=== PATIENT | male | born 1945 | race Caucasian/White ===

== ENCOUNTER 2019-10-25 10:07 | Outpatient (CLI) | payer MEDICARE, SELFPAY ==
--- NOTE | ~2019-10-25 | XR_ITS ---
XR abdomen/kub 1V 10/25/2019 10:23 Indication: Renal stones Procedure: KUB Comparison: Comparison to multiple prior studies sequentially, with oldest reviewed study dated 04/15. Findings: There are bilateral renal stones. There are pelvic phleboliths. There are gallstones. There are pancreatic calcifications, consistent with chronic pancreatitis. Bowel gas pattern is nonobstruc tive. Impression: 1: Bilateral nephrolithiasis. 2: Cholelithiasis. 3: Chronic pancreatitis. Reviewed, dictated and finalized at location B. ER AXMINSTER Impression: 1: Bilateral nephrolithiasis. 2: Cholelithiasis. 3: Chronic pancreatitis.
== END 2019-10-25 10:08 | disposition home or self-care (01) ==
PROVIDERS: PCP Family Medicine Adolescent Medicine; Visit Provider Urology
DX: N20.0 Calculus of kidney (principal); K80.20 Calculus of gallbladder without cholecystitis without obstruction; K85.90 Acute pancreatitis without necrosis or infection, unspecified
CPT/HCPCS: 74018

== ENCOUNTER 2021-03-07 10:43 | Outpatient (CLI) | payer MEDICARE, SELFPAY ==
--- NOTE | 2021-03-07 11:07 | ECG_ITS ---
Measurements Intervals [place] Rate: 52 P: 41 [place]: 171 QRS: -8 QRSD: 87 T: 42 QT: 439 QTc: 409 Interpretive Statements SINUS BRADYCARDIA EARLY PRECORDIAL R/S TRANSITION BORDERLINE ECG Electronically Signed On 03-07-2021 11:20:17 CDT by Balbir Zaragoza D.O.
== END 2021-03-07 10:44 | disposition home or self-care (01) ==
LOC: ANHCARD 10:46
PROVIDERS: PCP Family Medicine Adolescent Medicine; Visit Provider Physician Assistant
DX: Z01.818 Encounter for other preprocedural examination (principal); I25.2 Old myocardial infarction; R94.31 Abnormal electrocardiogram [ECG] [EKG]
CPT/HCPCS: 93005

== ENCOUNTER 2025-01-18 13:03 | Outpatient (CLI) | payer MEDICARE, SELFPAY ==
--- OUTSIDE RECORDS SUMMARY | 2025-01-18 13:08 | XMS_ITS | Encounter Summary ---
Author Organization [facility] Address [address] [place] [address] Care Team Providers Care Director Of Education Name Role Phone Unavailable Primary Care Provider Unavailabl e Encounter Details Date Type Department Care Team (Late st Contact Info) Description 02/22/2023 Documentation [facility] [address] [place] [phone] Edgar Balderrama MD [address] [place] [address] Social History Tobacco Use Types Packs/Day Years Used Date Smoking Tobacco: Never Assessed Sex and Gender Information Value Date Recorded Sex Assigned at Not on file Legal Sex Male 10:36 AM CDT Gender Identity Not on file Sexual Orientation Not on file documented as of this encounter Plan of Treatment Not on file documented as of this encounter Procedures Procedure Name Priority Date/Time Associated Diagnosis Comments FL FLUOROSCOPY UP TO 1 HOUR 02/24/2023 7:02 AM CDT documented in this encounter Results * Fluoroscopy less than 1 hour (02/24/2023 7:02 AM CDT) Anatomical Region Laterality Modality Body Radio Fluoroscop y Narrative 02/24/2023 7:02 AM CDT [facility] [address] [place]. [address] __ RADIOLOGY DICE PERSON REPORT Name: SLADE Malagon Acct Num: [id number] Age: 77 MR Num: [id number] : 1945 Sex: M Phone Num: [phone] Film Num: [id number] Stay Type: O/P Room: [facility] Admit Phys: CONCHIS R Ordering Phys: CONCHIS Zapien Phy: Transcript Date: 02/24/23 Order Num: [id number] Transcript Init: LP Transcript Time: 07:02 Unsigned Transcriptions are Preliminary reports and do not represent medical or legal documents. C-ARM FLUOROSCOPY 1-HOUR [id number] COMPLETE:02/22/23 18:07 JNB [id number] (C-ARM REASON: rt stent place NO READING PER DR BALDERRAMA Copy for: CONCHIS MANDUJANO via fax DISCHARGED Procedure Note [facility], Radiologist - 04/27/2023 [facility] [address] [place]. [address] __ RADIOLOGY DICE PERSON REPORT Name: SLADE Malagon Acct Num: [id number] Age: 77 MR Num: [id number] : 1945 Sex: M Phone Num: [phone] Film Num: [id number] Stay Type: O/P Room: [facility] Admit Phys: CONCHIS R Ordering Phys: CONCHISR Phy: Transcript Date: 02/24/23 Order Num: [id number] Transcript Init: LP Transcript Time: 07:02 Unsigned Transcriptions are Preliminary reports and do not represent medical or legal documents. C-ARM FLUOROSCOPY 1-HOUR [id number] COMPLETE:02/22/23 18:07 [id number] (C-ARM REASON: rt stent place NO READING PER DR BALDERRAMA Copy for: CONCHIS MANDUJANO via fax DISCHARGED Edgar Balderrama MD IM FLUOROSCOPY PROCEDURES Final Result documented in this encounter Visit Diagnoses Not on filedocumented in this encounter
--- OUTSIDE RECORDS SUMMARY | 2025-01-18 13:08 | XMS_ITS | Clinical Summary ---
Author Organization [facility] Address [facility] [place] [address] Care Team Providers Care Dealmaker Name Role Phone Unavailable Primary Care Provider Unavailabl e Medications aspirin 81 mg EC tablet 81 mg oral daily 3 Active atorvastatin (LIPITOR) 40 mg tablet 40 mg oral daily 3 Active cholecalciferol , vitamin D3, (VITAMIN D3) 125 mcg (5,000 unit) capsule 125 mcg oral daily 3 Active donepeziL (ARICEPT) 10 mg tablet 10 mg oral daily 3 Active fenofibrate (TRIGLIDE) 160 mg tablet 160 mg oral daily 3 Active hydroCHLOROthia zide (HYDRODIURIL) 25 mg tablet 25 mg oral daily 3 Active insulin aspart U-100 (NovoLOG FlexPen U-100 Insulin) 100 unit/mL (3 mL) insulin pen 12 units subcutaneous daily 3 Active insulin detemir U-100 (Levemir FlexPen) 100 unit/mL (3 mL) insulin pen 3 units subcutaneous bedtime 3 Active losartan (COZAAR) 25 mg tablet 25 mg oral daily 3 Active metFORMIN (GLUCOPHAGE) 1,000 mg tablet 1000 mg oral twice daily 3 Active niacin (Niaspan Extended-Releas e) 1,000 mg CR tablet 1000 mg oral daily 3 Active nitroGLYcerin (NITROSTAT) 0.4 mg SL tablet 0.4 mg sublingual 3 Active OLANZapine (ZyPREXA) 5 mg tablet 5 mg oral daily 3 Active sertraline (ZOLOFT) 25 mg tablet 25 mg oral daily 3 Active terbinafine (LamiSIL) 250 mg tablet 250 mg oral daily 3 Active Immunizations Immunization Administration Dates Next Due Moderna Covid-19, Mrna, Lnp- s, Pf, 100mcg/0.5ml Dose 03/12/2022,06/20/2021,10/26/2020,2020 Social History Tobacco Use Types Packs/Day Years Used Date Smoking Tobacco: Never Assessed Sex and Gender Information Value Date Recorded Sex Assigned at Not on file Legal Sex Male 10:36 AM CDT Gender Identity Not on file Sexual Orientation Not on file Plan of Treatment Health Maintenance Due Date Last Done Comments DTaP,Tdap,and Td Vaccines (1 - Tdap) 1965 AMB Pneumococcal 50+ yrs (1 of 1 - PCV) 1994 Zoster Series Vaccines (1 of 2) 1994 Fall Risk Assessment 2009 Medicare Annual Wellness Visit 2009 RSV Vaccines and 60 Years or Older (1 - 1-dose 75+ series) 2019 COVID-19 Vaccine ( season) 2024 03/12/2022, 06/20/2021, 10/26/2020, Additional history exists Advance Care Planning 08/23/2024 Influenza Vaccine (Season Ended) 2025 HIB Vaccines Aged Out No longer eligi ble based on patient's age to complete this topic HPV Vaccines Aged Out No longer eligi ble based on patient's age to complete this topic Hepatitis A Vaccines Aged Out No long er eligible based on patient's age to complete this topic Hepatitis B Vaccines Aged Out No long er eligible based on patient's age to complete this topic IPV Vaccines Aged Out No longer eligi ble based on patient's age to complete this topic Meningococcal ACWY Vaccine Aged Out N o longer eligible based on patient's age to complete this topic Meningococcal B Vaccine Aged Out No l onger eligible based on patient's age to complete this topic RSV Vaccines <20 Months Aged Out No l onger eligible based on patient's age to complete this topic
--- OUTSIDE RECORDS SUMMARY | 2025-01-18 13:08 | XMS_ITS ---
Author Organization Unknown Address [address] [place], [place] [id number] Phone Care Team Providers Care Workers' Compensation Mediator Name Role Phone MOLLY CONCETTA RIVERA Attending Unavailable Immunization Immunization Date Status Additional Notes Code Code System COVID-19, mRNA, LNP-S, PF, 5 0 mcg/0.5 mL 06/21/2023 Completed 312 CVX Pneumococcal conjugate PCV20 , polysaccharide [id number] conjugate, adjuvant, PF 02/26/2023 Completed 216 CVX COVID-19, mRNA, LNP-S, PF, 1 00 mcg/0.5mL dose or 50 mcg/0.25mL dose 03/12/2022 Completed 207 CVX COVID-19, mRNA, LNP-S, PF, 1 00 mcg/0.5mL dose or 50 mcg/0.25mL dose 06/20/2021 Completed 207 CVX COVID-19, mRNA, LNP-S, PF, 1 00 mcg/0.5mL dose or 50 mcg/0.25mL dose 10/26/2020 Completed 207 CVX COVID-19, mRNA, LNP-S, PF, 1 00 mcg/0.5mL dose or 50 mcg/0.25mL dose 09/28/2020 Completed 207 CVX Influenza, high-dose, quadrivalent, PF 05/31/2023 Completed 197 CVX Social History Type Status Start Date End Date Code Code Syst em Sex Male Hospital Discharge Instructions Should you have any questions prior to discharge, please contact a member of your healthcare team. If you have left the hospital and have any questions, please contact your primary care physician. Reason For Referral No Data Found Plan of Treatment No Data Found Encounters Encounter Diagnosis Start Date Code Code Sys tem Muscle weakness 07/07/2023 11939695 SNOMED-CT Personal Care Team Section Performer Name Performer Role Active Date Inactive Da te Progress Notes [facility] PT Initial Evaluation Scanned image
--- OUTSIDE RECORDS SUMMARY | 2025-01-18 13:08 | XMS_ITS | Clinical Summary ---
Author Organization [facility] Address [address] [place] [address] Phone Care Team Providers Care Professor Of Biology Name Role Phone Farhat Blas MD Primary Care Provider [phone] Allergies Active Allergy Reactions Criticality Noted Date Comments Codeine Nausea Only Medium Penicillins Rash Medium Medications Multiple Vitamin (MULTIVITAMIN) capsule 05/14/2012 Active insulin glulisine (APIDRA) 100 UNIT/ML injection 08/07/2015 Active aspirin 325 MG tablet 05/14/2012 Active losartan (COZAAR) 25 MG tablet 1 daily 3 05/14/2012 Active glipiZIDE (GLUCOTROL) 5 MG tablet 1 bid 05/14/2012 Active metFORMIN (GLUCOPHAGE) 1000 MG tablet 1 bid 05/14/2012 Acti ve cholecalciferol (VITAMIN D-3) 2000 units capsule 1 daily 05/18/2012 Active niacin (NIASPAN) 1000 MG CR tablet 05/14/2012 Active fenofibrate (TRIGLIDE) 160 MG tablet 05/15/2019 Active insulin aspart (NovoLOG FLEXPEN) 100 UNIT/ML injection Active EASY TOUCH PEN NEEDLES 31G X [facility] MM [facility] 11/22/2019 Active Lancets (ONETOUCH DELICA PLUS [id number]) [facility] 11/22/2019 Act sabrina donepezil (ARICEPT) 10 MG tablet 11/22/2019 Active OneTouch Ultra test strip 05/16/2020 Active atorvastatin (LIPITOR) 40 MG tablet 07/23/2021 Active nitroglycerin (NITROSTAT) 0.[address] 0.4 mg under the tongue every 5 minutes as needed Active omega-3 (FISH OIL) 1200 MG capsule Take 1,200 mg by mouth 2 times daily Active OLANZapine (ZyPREXA) 2.5 MG tablet 01/13/2022 Active hydroCHLOROthia zide (HYDRODIURIL) 25 MG tablet TAKE 1 TABLET (25 MG TOTAL) BY MOUTH 1 (ONE) TIME EACH DAY IN THE MORNING FOR FLUID, SWELLING, OR BLOOD PRESSURE. 90 tablet 3 05/04/2022 Active Farxiga 10 MG tablet 06/25/2022 Active Baqsimi Two Pack 3 MG/DOSE powder 05/26/2022 Active Tresiba FlexTouch 100 UNIT/ML injection 06/25/2022 Active sertraline (ZOLOFT) 50 MG tablet 07/27/2022 Active Active Problems Problem Noted Date Diagnosed Date Hyperlipidemia 08/03/2018 Proteinuria 02/03/2017 Vitamin D deficiency 02/03/2017 Type 2 diabetes mellitus without complication Stage 3a chronic kidney disease 03/15/2012 Hypertensive chronic kidney disease with stage 1 through stage 4 chronic kidney disease, or unspecified chronic kidney disease 03/15/2012 Calculus of kidney 03/15/2012 Immunizations Immunization Administration Dates Next Due Influenza TIV (IM) 05/07/2022,05/23/2021, 020 Pneumococcal Conjugate 04/23/2019 Family History Medical History Relation Comments Kidney disease Neg Hx Kidney stone Neg Hx Social History Tobacco Use Types Packs/Day Years Used Date Smoking Tobacco: Never Smokeless Tobacco: Never Alcohol Use Standard Drinks/Week Comments No 0 (1 standard drink = 0.6 oz pur e alcohol) AUDIT-C Answer Date Recorded Frequency of Alcohol Consumption Never 02/08/2019 Average Number of Drinks Not on file 019 Frequency of Binge Drinking Not on file 01/21 Sex and Gender Information Value Date Recorded Sex Assigned at Not on file Legal Sex Male 8:15 AM MST Gender Identity Not on file Sexual Orientation Not on file Last Filed Vital Signs Vital Sign Reading Time Taken Comments Blood Pressure 112/60 07/29/2022 10:05 AM REFRIGERATION SPECIALIST Pulse 72 07/29/2022 10:05 AM REFRIGERATION SPECIALIST Temperature 34.7 C (94.4 F) 07/29/2022 10:05 AM REFRIGERATION SPECIALIST Respiratory Rate 18 11/02/2012 12:01 AM CDT Oxygen Saturation - - Inhaled Oxygen Concentration - - Weight 86.6 kg (191 lb) 07/29/2022 10:05 AM REFRIGERATION SPECIALIST Height 172.7 cm (5' 8) 07/29/2022 10:05 AM REFRIGERATION SPECIALIST Body Mass Index 29.04 07/29/2022 10:05 AM REFRIGERATION SPECIALIST Plan of Treatment Health Maintenance Due Date Last Done Comments Pneumococcal PPSV23/PCV13 65 + Years / Low and Medium Risk (1 of 4 - PCV) 1994 Influenza Vaccine (Season Ended) 2025 05/07/2022, 05/23/2021, 04/23/2020 Insurance [employer] Care Teams Professor Of Biology Relationship Specialty Start Date End Date Farhat Blas MD [address] [address] PCP - General Family Medicine 02/08/19
--- OUTSIDE RECORDS SUMMARY | 2025-01-18 13:08 | XMS_ITS ---
Author Organization Unknown Address [address] [place], [place] [id number] Phone Care Team Providers Care Theatrical Performer Name Role Phone Unavailable [employer] Unavailable CONCHIS MANDUJANO Attending Unavail able Immunization Immunization Date Status Additional Notes Code Code System COVID-19, mRNA, LNP-S, PF, 1 00 mcg/0.5mL dose or 50 mcg/0.25mL dose 09/28/2020 Completed 207 CVX COVID-19, mRNA, LNP-S, PF, 1 00 mcg/0.5mL dose or 50 mcg/0.25mL dose 10/26/2020 Completed 207 CVX COVID-19, mRNA, LNP-S, PF, 1 00 mcg/0.5mL dose or 50 mcg/0.25mL dose 06/20/2021 Completed 207 CVX COVID-19, mRNA, LNP-S, PF, 1 00 mcg/0.5mL dose or 50 mcg/0.25mL dose 03/12/2022 Completed 207 CVX Results C-ARM FLUOROSCOPY 1-HOUR - C ompleted: 02/22/2023 18:07 LOINC: NO READING PER DR BALDERRAMA Copy for: CONCHIS MANDUJANO via fax DISCHARGED Social History Type Status Start Date End Date Code Code Syst em Sex Male Vital Signs Vital Sign Value Unit [place] Value [place] Unit Date/Time Recent/Initial? Code Code System Systolic Blood Pressure 123 mm[Hg] 02/22/2023 19:50 Most Recent 8480-6 LOINC Diastolic Blood Pressure 58 mm[Hg] 02/22/2023 19:50 Most Recent 8462-4 LOINC Systolic Blood Pressure 129 mm[Hg] 02/22/2023 18:50 Initial 8480-6 LOINC Diastolic Blood Pressure 68 mm[Hg] 02/22/2023 18:50 Initial 8462-4 LOINC O2 Saturation 98 % 2022 19:50 Most Recent 69926- 5 [facility] O2 Saturation 94 % 2022 18:50 Initial 02766- 5 INC Pulse 64.0 /min 02/22/2023 19:50 Most Recent 8867-4 INC Pulse 68.0 /min 02/22/2023 18:50 Initial 8867-4 LOINC Respiration 18 /min 02/23/20 19:50 Most Recent 9279-1 LOINC Respiration 17 /min 02/23/20 18:50 Initial 9279-1 [facility] Temperature 37.3 Margo 99.2 F 02/23/20 18:50 Initial 8310-5 [facility] Medications Medication Start Date End Date Route Frequency Dose Code Code System Medication Instructions Home Meds Aspirin 81MG Oral Tablet, Enteric Coated 02/22/2023 Unknown ORAL DAILY 81 MILLIGRAMS 969090 RxNorm TAKE 81 MILLIGRAMS ORAL DAILY Atorvastati n Calcium 40MG Oral Tablet 02/22/2023 Unknown ORAL DAILY 40 MILLIGRAMS 597602 RxNorm TAKE 40 MILLIGRAMS ORAL DAILY Donepezil HCl 10MG Oral Tablet 02/22/2023 Unknown ORAL DAILY 10 MILLIGRAMS 156146 RxNorm TAKE 10 MILLIGRAMS ORAL DAILY Fenofibrate 160MG Oral Tablet 02/22/2023 Unknown ORAL DAILY 160 MILLIGRAMS 300125 RxNorm TAKE 160 MILLIGRAMS ORAL DAILY Fish Oil 1200 MG Oral Capsule, Liquid Filled 02/22/2023 Unknown ORAL TWICE DAILY 1200 MG 787186 RxNorm TAKE 1200 MG ORAL TWICE DAILY Levemir FlexPen 100U/1ML Subcutaneou s Solution 02/22/2023 Unknown SUBCUTAN EOUS BEDTIME 30 UNIT 057931 RxNorm INJECT 30 UNIT SUBCUTANEOUS BEDTIME Losartan Potassium 25MG Oral Tablet 02/22/2023 Unknown ORAL DAILY 25 MILLIGRAMS 555944 RxNorm TAKE 25 MILLIGRAMS ORAL DAILY Multivitami n Oral Tablet 02/22/2023 Unknown ORAL DAILY 1 unit(s) RxNorm TAKE 1 EACH ORAL DAILY Niaspan 1000MG Oral Tablet, Extended Release 02/22/2023 Unknown ORAL DAILY 1000 MILLIGRAMS [id number] RxNorm TAKE 1000 MILLIGRAMS ORAL DAILY Nitroglycer in 0.4MG Sublingual Tablet 02/22/2023 Unknown SUBLINGU AL 0.4 MILLIGRAMS 481586 RxNorm 0.4 MILLIGRAMS SUBLINGUAL NovoLOG FlexPen 100U/1ML Subcutaneou s Solution 02/22/2023 Unknown SUBCUTAN EOUS DAILY 12 UNIT 6874327 RxNorm INJECT 12 UNIT SUBCUTANEOUS DAILY OLANZapine 5MG Oral Tablet 02/22/2023 Unknown ORAL DAILY 5 MILLIGRAMS 560166 RxNorm TAKE 5 MILLIGRAMS ORAL DAILY Sertraline 25MG Oral Tablet 02/22/2023 Unknown ORAL DAILY 25 MILLIGRAMS 477569 RxNorm TAKE 25 MILLIGRAMS ORAL DAILY Terbinafine 250MG Oral Tablet 02/22/2023 Unknown ORAL DAILY 250 MILLIGRAMS 333916 RxNorm TAKE 250 MILLIGRAMS ORAL DAILY Vitamin D3 125 MCG Oral Capsule 02/22/2023 Unknown ORAL DAILY 125 MCG [id number] RxNorm TAKE 125 MCG ORAL DAILY hydroCHLORO thiazide 25MG Oral Tablet 02/22/2023 Unknown ORAL DAILY 25 MILLIGRAMS 270694 RxNorm TAKE 25 MILLIGRAMS ORAL DAILY metFORMIN HCl 1000MG Oral Tablet 02/22/2023 Unknown ORAL TWICE DAILY 1000 MILLIGRAMS 614126 RxNorm TAKE 1000 MILLIGRAMS ORAL TWICE DAILY Hospital Discharge Instructions Should you have any questions prior to discharge, please contact a member of your healthcare team. If you have left the hospital and have any questions, please contact your primary care physician. Reason For Referral No Data Found Procedures Procedure Name Date Status Code Code Syste m Extirpation of Matter from R ight Ureter, Via Natural or Artificial Opening 02/22/2023 completed [id number] IC [id number] Dilation of Right Ureter wit h Intraluminal Device, Via Natural or Artifici 02/22/2023 completed [id number] Allergies and Adverse Reactions Allergy Substance Reaction Severity Start Date Concern Status Co de Code System PCN (penicillin) Active 9245053 HublishedOMED- CT CODEINE Active 2670 RxNorm Plan of Treatment No Data Found Encounters Encounter Diagnosis Start Date Code Code Sys tem Hydronephrosis with renal an d ureteral calculous obstruction 02/22/2023 [employer] Pl[employer]-CT Personal Care Team Section Performer Name Performer Role Active Date Inactive Da te Imaging Narrative Notes [facility] 02/24/2023 07:05 [facility] [address] [place]. [address] __ RADIOLOGY GAMEROOM TECHNICIAN REPORT Name: SLADE Malagon Acct Num: [id number] Age: 77 MR Num: [id number] : 1945 Sex: M Phone Num: [phone] Film Num: [id number] Stay Type: O/P Room: [facility] Admit Phys: CONCHIS Antunez Ordering Phys: CONCHIS Zapien Phy: Transcript Date: 02/24/23 Order Num: [id number] Transcript Init: LP Transcript Time: 07:02 Unsigned Transcriptions are Preliminary reports and do not represent medical or legal documents. C-ARM FLUOROSCOPY 1-HOUR 37000 COMPLETE:02/22/23 18:07 JNB [id number] (C-ARM REASON: rt stent place NO READING PER DR BALDERRAMA Copy for: CONCHIS MANDUJANO via fax DISCHARGED
--- OUTSIDE RECORDS SUMMARY | 2025-01-18 13:08 | XMS_ITS | Clinical Summary ---
Author Organization [facility] Address [address] [place] [address] Care Team Providers Care Teasel Gig Operator Name Role Phone Farhat Conde MD Primary Care Provider + Source Comments [facility],non-owned Affiliates and Associated Physician Practices is amultiple site organization consisting of ambulatory clinics and hospital sitesin [place], [place], [place] and [place]. This disclosure is being madepursuant to the Care Everywhere program and may not contain all information available regarding this patient. Last updated 18.[facility] Allergies Active Allergy Reactions Criticality Noted Date Comments Cresencio Inhibitors Cough 06/21/2024 Codeine Unknown 05/21/2021 Penicillins Unknown 05/21/2021 Medications * This document contains information received from the source organization and may not represent a complete record from that organization. * Be aware that medications may not be up to date on this document. Alwaysverify current medications with the patient. terbinafine (LAMISIL) 250 MG tabletIndications:T inea Pedis Take 1 tablet by mouth once daily 03/31/20 21 Active LEVEMIR FLEXTOUCH penIndications:Type 2 Diabetes Mellitus Inject 30 (thirty) Units subcutaneously at bedtime Reasons: Type 2 Diabetes 02/19/20 21 Active NOVOLOG FLEXPEN penIndications:Type 2 Diabetes Mellitus Inject 12 (twelve) Units subcutaneously daily with lunch Reasons: Type 2 Diabetes 02/19/20 21 Active insulin aspart (NOVOLOG) penIndications:Type 2 Diabetes Mellitus Inject 16 (sixteen) Units subcutaneously daily with dinner Reasons: Type 2 Diabetes Active atorvastatin (LIPITOR) 40 MG tabletIndications:H yperlipidemia Take 1 (one) tablet by mouth once daily Reasons: High Amount of Fats in the Blood 03/13/20 Active metFORMIN (GLUCOPHAGE) 1000 MG tabletIndications:T ype 2 Diabetes Mellitus Take 1 (one) tablet by mouth 2 times daily with morning and evening meal Reasons: Type 2 Diabetes Active niacin CR (NIASPAN) 1000 MG tabletIndications:H yperlipidemia Take 1,000 mg by mouth every evening Active fenofibrate (LOFIBRA) 160 MG tabletIndications:H ypertriglyceridemia Take 1 (one) tablet by mouth every evening Take with largest meal of the day. Reasons: High Amount of Triglycerides in the Blood Active hydroCHLOROthiazide (HYDRODIURIL) 25 MG tabletIndications:H ypertension Take 1 (one) tablet by mouth once daily Reasons: High Blood Pressure Disorder Active losartan (COZAAR) 25 MG tabletIndications:H ypertension Take 1 (one) tablet by mouth once daily Reasons: High Blood Pressure Disorder Active latanoprost (XALATAN) 0.005 % ophthalmic solutionIndications :Ocular Hypertension Instill 1 drop into right eye at bedtime Active donepezil (ARICEPT) 10 MG tabletIndications:C ognitive Dysfunction Take 1 (one) tablet by mouth once daily Reasons: Cognitive Dysfunction Active Ider-3 Fatty Acids (FISH OIL) 1200 MGIndications:Nutri tion Take 1,200 mg by mouth 2 times daily Active vitamin D (CHOLECACIFEROL) 125 MCG (5000 UT) capsuleIndications: Vitamin D Deficiency Take 1 (one) capsule by mouth once daily Reasons: Vitamin D Deficiency Active aspirin EC (ECOTRIN) 81 MG tabletIndications:C oronary Arteriosclerosis Take 1 (one) tablet by mouth once daily Reasons: Thickening and Hardening of Heart Arteries Active multivitamin daily tabletIndications:N utritional Support Take 1 (one) tablet by mouth once daily Reasons: Nutritional Support Active nitroGLYCERIN (NITROSTAT) 0.4 MG tabletIndications:A ngina Pectoris Dissolve 0.4 mg under the tongue every 5 minutes as needed for Angina Active sertraline (ZOLOFT) 25 MG tabletIndications:M ood Changes Take 1 (one) tablet by mouth once daily Reasons: Mood Changes 30 tablet 05/28/20 21 Active OLANZapine (ZYPREXA) 5 MG tabletIndications:A bnormality in Thinking Take 1 (one) tablet by mouth once daily Reasons: Abnormality in Thinking 30 tablet 05/28/20 21 Active insulin aspart (NovoLOG) pen Inject 12 (twelve) Units subcutaneously daily with breakfast Active clopidogrel (plaVIX) 75 MG tablet Take 1 (one) tablet by mouth once daily Active Dapagliflozin Propanediol (FARXIGA PO) Take 10 mg by mouth once daily Active carbidopa-levodopa, disintegrating, (Parcopa) 25-100 MG tablet Take 1 (one) tablet by mouth 3 times daily Active Active Problems Problem Noted Date Diagnosed Date Abdominal pain, generalized 02/22/2023 Asymptomatic bradycardia 02/22/2023 Right kidney stone 02/22/2023 Unusual change in behavior 05/21/2021 Social History Tobacco Use Types Packs/Day Years Used Date Smoking Tobacco: Never Smokeless Tobacco: Never Tobacco Cessation:Counseling Given: Not Answered Sex and Gender Information Value Date Recorded Sex Assigned at Male 06/21/2024 4:16 PM CDT Legal Sex 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 Gender Identity Not on file Sexual Orientation Not on file Last Filed Vital Signs Vital Sign Reading Time Taken Comments Blood Pressure 118/71 06/21/2024 4:21 PM CDT Pulse 60 06/21/2024 4:21 PM CDT Temperature 36.7 C (98 F) 06/21/2024 4:09 PM CDT Respiratory Rate 18 06/21/2024 4:21 PM CDT Oxygen Saturation 97% 02/22/2023 9:30 AM CDT Inhaled Oxygen Concentration - - Weight 86.2 kg (190 lb) 06/21/2024 4:09 PM CDT Height 172.7 cm (5' 8) 06/21/2024 4:09 PM CDT Body Mass Index 28.89 06/21/2024 4:09 PM CDT Plan of Treatment Health Maintenance Due Date Last Done Comments DTAP/TDAP/TD VACCINES (1 - Tdap) 1964 PNEUMOCOCCAL VACCINE 50+ (1 of 2 - PCV) 1963 ZOSTER VACCINE (1 of 2) 1994 Respiratory Syncytial Virus (RSV) Vaccine Pt: or over 60 yrs (1 - 1-dose 75+ series) 2019 COVID-19 VACCINE ( - season) 2024 03/12/2022, 06/20/2021, 10/26/2020, Additional history exists DEPRESSION SCREENING 08/23/2024 MEDICARE AWV CALENDAR YEAR 2024 INFLUENZA VACCINE (Season Ended) 2025 05/31/2023, 05/07/2022, 05/23/2021, Additional history exists HEPATITIS B VACCINE Aged Out No longe r eligible based on patient's age to complete this topic HIB VACCINE Aged Out No longer eligi ble based on patient's age to complete this topic HPV VACCINE Aged Out No longer eligi ble based on patient's age to complete this topic MENINGOCOCCAL (Group B) VACCINE SHARED DECISION-MAKING Aged Out No longer eligible based on patient's age to complete this topic MENINGOCOCCAL GROUPS A/C/Y/W VACCINE Aged Out No longer eligible based on patient's age to complete this topic Insurance AETNA MEDICARE ADV AETNA MEDICARE ADV [facility] MEDICARE ADV Advance Directives Documents on File Type Date Recorded 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
[2025-01-18 13:30] LABS: Hematocrit 46.6 % (42.0-52.0); Hemoglobin 15.2 g/dL (14.0-18.0); Mean Corpuscular HGB Conc 32.6 g/dl (32-36); Mean Corpuscular Hemoglobin 29.4 pg (26-34); Mean Corpuscular Volume 90.1 fl (80-100); Mean Platelet Volume 9.9 fl (7.4-10.4); Platelet Count Result 230 k/mm3 (150-375); Red Blood Count 5.17 M/mm3 (4.6-6.20); Red Cell Distribution Width 15.1 % (11.5-14.5); White Blood Count 7.5 K/mm3 (4.5-10.0)
[2025-01-18 13:39] LABS: Albumin Level 4.3 g/dL (3.5-5.1); Anion Gap 7 mmol/L (4-12); Blood Urea Nitrogen 35 mg/dL (9-20); Calcium 10.2 mg/dL (8.4-10.2); Carbon Dioxide 30 mmol/L (22-30); Chloride 105 mmol/L (98-107); Estimated Glomerular Filt Rate 39; Glucose 111 mg/dL (65-110); Phosphorus 3.6 mg/dL (2.5-4.5); Potassium 4.6 mmol/L (3.4-5.0); Sodium 142 mmol/L (137-145); Uric Acid 7.4 mg/dL (3.5-8.5)
[2025-01-18 14:09] LABS: Add Urine Microscopic? NO; Appearance Urine Clear (Clear); Bilirubin Urine Negative (Negative); Blood Urine Negative (Negative); Color Urine Yellow (Yellow); Glucose Urine UA 3+ mg/dL (Negative); Ketones Urine Negative (Negative); Leukocyte Esterase Ur Negative LEU/UL (Negative); Nitrate Urine Negative (Negative); Protein Urine Negative (Negative); Specific Grav Ur 1.022 (1.001-1.035); Urobilinogen Urine 0.2 mg/dL (<2.0); pH Urine 7.5 (5.0-9.0)
[2025-01-18 14:20] LABS: Creatinine Urine 65.1 mg/dL
[2025-01-18 14:32] LABS: Total Protein Urine Random < 5 mg/dL; Ur Ttl Prot Creatinine Ratio < 0.08 mg/mg (0-0.20)
== END 2025-01-18 13:04 | disposition home or self-care (01) ==
LOC: ANHLAB 13:05
PROVIDERS: PCP Family Medicine Adolescent Medicine; Visit Provider Internal Medicine Nephrology
DX: N20.0 Calculus of kidney (principal); N18.32 Chronic kidney disease, stage 3b
CPT/HCPCS: 36415; 80069; 81003; 82570; 83970; 84156; 84550; 85027

== ENCOUNTER 2025-07-24 13:15 | Outpatient (CLI) | payer MEDICARE, SELFPAY ==
[2025-07-24 13:45] LABS: Hematocrit 48.9 % (42.0-52.0); Hemoglobin 16.2 g/dL (14.0-18.0); Mean Corpuscular HGB Conc 33.1 g/dl (32-36); Mean Corpuscular Hemoglobin 30.4 pg (26-34); Mean Corpuscular Volume 91.7 fl (80-100); Platelet Count Result 244 k/mm3 (150-375); Red Blood Count 5.33 M/mm3 (4.6-6.20); White Blood Count 7.7 K/mm3 (4.5-10.0)
[2025-07-24 13:51] LABS: Albumin Level 4.3 g/dL (3.5-5.1); Anion Gap 6 mmol/L (4-12); Blood Urea Nitrogen 37 mg/dL (9-20); Calcium 10.2 mg/dL (8.4-10.2); Carbon Dioxide 29 mmol/L (22-30); Chloride 102 mmol/L (98-107); Estimated Glomerular Filt Rate 33; Glucose 231 mg/dL (65-110); Potassium 4.9 mmol/L (3.4-5.0); Sodium 137 mmol/L (137-145); Uric Acid 9.2 mg/dL (3.5-8.5)
[2025-07-24 13:58] LABS: Total Protein Urine Random 17 mg/dL; Ur Ttl Prot Creatinine Ratio 0.12 mg/mg (0-0.20)
[2025-07-24 14:03] LABS: Parathyroid Intact 48.2 pg/mL (14.5-75.2)
--- OUTSIDE RECORDS SUMMARY | 2025-07-24 14:13 | XMS_ITS | Clinical Summary ---
Author Organization [facility] Address [address] [place] [address] Care Team Providers Care Media Technician Name Role Phone Farhat Conde MD Primary Care Provider + Source Comments [facility],non-owned Affiliates and Associated Physician Practices is amultiple site organization consisting of ambulatory clinics and hospital sitesin [place], [place], [place] and [place]. This disclosure is being madepursuant to the Care Everywhere program and may not contain all information available regarding this patient. 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 Gender Identity Not on file Sexual Orientation [...] Tdap) 1964 PNEUMOCOCCAL VACCINE 50+ (1 of 1 - PCV) 1994 ZOSTER VACCINE (1 of 2) 1994 Respiratory Syncytial Virus (RSV) Vaccine Pt: or over 60 yrs (1 - 1-dose 75+ series) 2019 DEPRESSION SCREENING 08/23/2024 MEDICARE AWV CALENDAR YEAR 2024 COVID-19 VACCINE (2024- season) 2025 03/12/2022, 06/20/2021, 10/26/2020, Additional history exists INFLUENZA VACCINE (#1) 2025 , 05/07/2022, 05/23/2021, Additional history exists HEPATITIS B [...] Insurance AETNA MEDICARE ADV AETNA MEDICARE ADV [facility]V Advance Directives Documents on File Type Date Recorded 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
--- OUTSIDE RECORDS SUMMARY | 2025-07-24 14:13 | XMS_ITS | Clinical Summary ---
Author Organization [facility] Address [facility] [place] [address] Care Team Providers Care Staff Weapons Officer Name Role Phone Farhat Conde MD Primary Care Provider [phone] Manjeet Laguna MD Unavailable [phone] Allergies Active Allergy Reactions Criticality Noted Date Comments Cresencio Inhibitors Cough 02/28/2023 Codeine Nausea and Vomiting Low 02/28/2023 Penicillins Unknown 02/28/2023 Tolerated ceftriaxone February 2023 Medications Vitamin D3 125 mcg TabIndications: Nutritional Support Take 1 tablet (125 mcg total) by mouth daily. Indications: Nutritional Support Active sertraline (ZOLOFT) 25 MG tabletIndicatio ns:Depression Take 1 tablet (25 mg total) by mouth daily. Indications: Depression Active losartan (COZAAR) 25 MG tabletIndicatio ns:Hypertension Take 1 tablet (25 mg total) by mouth daily. Indications: High Blood Pressure Active donepezil (ARICEPT) 10 MG TabIndications: Dementia Take 1 tablet (10 mg total) by mouth nightly at bedtime. Indications: Decline in Cognition due to a Brain Disease Active fish oil (OMEGA-3 FATTY ACID) 1000 MG Cap capsuleIndicati ons:Nutritional Support Take 1,200 mg by mouth 2 (two) times daily. Indications: Nutritional Support Active fenofibrate (TRICOR) 54 MG tabletIndicatio ns:Hyperlipidem ia Take 1 tablet (54 mg total) by mouth daily with breakfast. Indications: High Amount of Fats in the Blood Active OLANZapine (ZYPREXA) 2.5 MG tabletIndicatio ns:Depression Take 1 tablet (2.5 mg total) by mouth nightly at bedtime. Indications: Depression Active Multiple Vitamins-Minera ls (MULTIVITAMIN ADULTS OR)Indications: supplement Take 1 tablet by mouth daily. Indications: supplement Active atorvastatin (LIPITOR) 80 MG tabletIndicatio ns:HLD Take 1 tablet (80 mg total) by mouth nightly at bedtime. Indications: HLD 06/01/20 23 Active dapagliflozin (FARXIGA) 10 MG tabletIndicatio ns:DM 08/02/20 23 Active clopidogrel (PLAVIX) 75 MG tabletIndicatio ns:anticoagulat ion TAKE ONE (1) TABLET (75 MG TOTAL) BY MOUTH DAILY. 30 tablet 2 12/02/19 24 Active potassium citrate CR (UROCIT-K) 10 MEQ (1080 MG) tablet Take 1 tablet (10 mEq total) by mouth 2 (two) times a day. 03/30/20 24 Active traZODone (DESYREL) 50 MG tablet 06/15/20 24 Active Insulin Aspart FlexPen 100 UNIT/ML Solution Pen-injector Inject into the skin see administration instructions. Indications: Diabetes Before breakfast and lunch give 12 units if BS is over 120. Before dinner give 16. 10/03/19 25 Active TRESIBA FLEXTOUCH 200 UNIT/ML injection (PEN) Inject 26 Units into the skin nightly at bedtime. 10/02/19 25 Active metFORMIN ER (GLUCOPHAGE-XR) 500 MG 24 hr tablet TAKE 1 TABLET BY MOUTH ONCE DAILY WITH SUPPER FOR DIABETES 09/28/19 25 Active ONETOUCH ULTRA TEST test strip 08/25/19 25 Active carbidopa-levod opa (SINEMET) 25-100 MG tabletIndicatio ns:Dementia without behavioral disturbance (CMS/HCC) TAKE 1 TABLET BY MOUTH THREE TIMES DAILY WITH MEALS 90 tablet 11 06/12/20 25 Active Active Problems Problem Noted Date Diagnosed Date Status post total replacement of right hip 12/27 Primary osteoarthritis of right hip 11/24/2023 Bilateral carotid artery stenosis 06/29/2023 TIA (transient ischemic attack) 05/26/2023 Hyperlipidemia 08/03/2018 Calculus of kidney 03/15/2012 Stage 3a chronic kidney disease 03/15/2012 Type 2 diabetes mellitus without complication Resolved Problems Problem Noted Date Diagnosed Date Resolved Date Sepsis 03/01/2023 03/03/2023 Bacteria in urine 02/28/2023 03/03/2023 Encounters Date Type Department Care Team Description 07/03/2025 11:00 AM PAYROLL COORDINATOR Office Visit [facility] - [facility] [address] [place] [address] Fransisco Roberts MD Follow Up 07/03/2025 Travel 05/07/2025 10:30 AM CDT Office Visit [facility] [address] [place] [address] Manjeet Laguna MD Coronary Artery Disease (6mo) 05/07/2025 Travel from Last 3 Months Immunizations Immunization Administration Dates Next Due Influenza (Generic) 05/07/2022,05/23/2021,2019 Influenza Adult (Generic) 05/31/2023 MODERNA COVID-19 (12+) MRNA, LNP-S, PF, 100 MCG/ 0.5 ML DOSE 03/12/2022,06/20/2021,10/26/2020,2020 MODERNA COVID-19 (12+), MRNA , LNP-S, PF, 50 MCG/0.5 ML (SPIKEVAX) 06/21/2023 Pneumococcal (Prevnar 20) 02/26/2023 Pneumococcal (Prevnar 7) 04/23/2019 Family History Medical History Relation Comments Hypertension Father Depression Mother Diabetes Mother Relation Status Comments Father Mother Social History Tobacco Use Types Packs/Day Years Used Date Smoking Tobacco: Never Passive Smoke Exposure: Never Smokeless Tobacco: Never Tobacco Cessation:Counseling Given: Yes Alcohol Use Standard Drinks/Week Comments Not Currently 0 (1 standard drink = 0.6 oz pur e alcohol) OASIS D0700: Social Isolation Answer Da te Recorded Frequency of experiencing loneliness or isolatio n Never 01/12/2024 OASIS A1250: Transportation Answer Date Recorded Lack of Transportation (Medical) No 01/12/2024 Lack of Transportation (Non-Medical) No 01/12/2024 Patient Unable or Declines to Respond No 01/12/2024 OASIS B1300: Health Literacy Answer Mariano e Recorded Frequency of needing help to read materials from doctor or pharmacy Never 01/12/2024 Humiliation, Afraid, Rape, and Kick questionnair e Answer Date Recorded Within the last year, have y ou been afraid of your partner or ex-partner? No 02/28/2023 Within the last year, have y ou been humiliated or emotionally abused in other ways by your partner or ex-partner? No Within the last year, have y ou been kicked, hit, slapped, or otherwise physically hurt by your partner or ex-partner? No 02/28/2023 Within the last year, have y ou been raped or forced to have any kind of sexual activity by your partner or ex-partner? No 02/28/2023 Overall Financial Resource Strain (CARDIA) Answe r Date Recorded How hard is it for you to pa y for the very basics like food, housing, medical care, and heating? Not hard at all 02/28/2023 PHQ-2 Answer Date Recorded Patient Health Questionnaire-2 Score 0 12/26/2024 Hunger Vital Sign Answer Date Recorded Within the past 12 months, y ou worried that your food would run out before you got the money to buy more. Never true 02/29/20 23 Within the past 12 months, t he food you bought just didn't last and you didn't have money to get more. Never true 02/28/2023 PRAPARE - Transportation Answer Date Re corded In the past 12 months, has l ack of transportation kept you from medical appointments or from getting medications? No 04/2023 In the past 12 months, has l ack of transportation kept you from meetings, work, or from getting things needed for daily living? No 02/28/2023 Housing Stability Vital Sign Answer Mariano e Recorded In the last 12 months, was t here a time when you were not able to pay the mortgage or rent on time? No 02/28/2023 In the last 12 months, how many places have you lived? 1 02/28/2023 In the last 12 months, was t here a time when you did not have a steady place to sleep or slept in a care home (including now)? No 02/28/2023 Sex and Gender Information Value Date Recorded Sex Assigned at Male 10/25/2024 7:53 AM PAYROLL COORDINATOR Legal Sex Male 4:01 PM CDT Gender Identity Not on file Sexual Orientation Not on file Last Filed Vital Signs Vital Sign Reading Time Taken Comments Blood Pressure 125/79 07/03/2025 11:02 AM PAYROLL COORDINATOR Pulse 61 07/03/2025 11:02 AM PAYROLL COORDINATOR Temperature 35.9 C (96.6 F) 07/03/2025 11:02 AM PAYROLL COORDINATOR Respiratory Rate 12 12/26/2024 10:42 AM CDT Oxygen Saturation 97% 07/03/2025 11:02 AM PAYROLL COORDINATOR Inhaled Oxygen Concentration - - Weight 85.4 kg (188 lb 4.8 oz) 07/03/2025 11:02 AM PAYROLL COORDINATOR Height 167.6 cm (5' 6) 07/03/2025 11:02 AM PAYROLL COORDINATOR Body Mass Index 30.39 07/03/2025 11:02 AM PAYROLL COORDINATOR Plan of Treatment Upcoming Encounters Date Type Department Care Team (Late st Contact Info) Description 01/01/2026 11:00 AM CDT Office Visit [facility] - [facility] [address] [facility], [address] [place] [id number] Fransisco Roberts MD [address] [place], [place] [id number] 05/13/2026 10:15 AM CDT Office Visit [facility] [address] [place] [address] Manjeet Laguna MD [address] [facility] [place], [place] [id number] Health Maintenance Due Date Last Done Comments ASCVD Statin 1945 Kidney Health Evaluation 1945 Diabetes: Retinopathy Eye Exam 1962 DTaP, Tdap and Td Vaccines (1 - Tdap) 1964 Annual Medicare Wellness Visit 2009 Zoster Vaccines (2 of 2) 01/20/2019 11/25/2018 RSV Immunization or 60+ Years (1 - 1-dose 75+ series) 2019 Hemoglobin A1C 11/25/2023 05/26/2023, 07/0 04/2023, 05/24/2021 ASCVD LDL 05/26/2024 05/26/2023 COVID-19 Vaccine ( season) 2025 05/11/2024, 06/21/2023, 03/12/2022, Additional history exists Influenza Adult (#1) 2025 05/11/2024, 05/31/2023, 05/07/2022, Additional history exists Lipid Panel 06/02/2025 06/02/2024, 11/2022, 01/06/2023 Pneumococcal Vaccine: 50+ Years Completed 02/26/2023, 04/23/2019, 06/06/2018, Additional history exists PHQ-2 (Physician [place]) Completed 12/26/2024 Hepatitis A Vaccines Aged Out No long er eligible based on patient's age to complete this topic Meningococcal B Vaccine Aged Out No l onger eligible based on patient's age to complete this topic Meningococcal Vaccine Aged Out No mayra radha eligible based on patient's age to complete this topic RSV Immunizations Under 20 Months Aged Out No longer eligible based on patient's age to complete this topic Goals Goal Patient Goal Type Associated Problems Recent Progress Patient-Stated? Author Patient will return to prior living situation and remain independent in ADLs upon discharge from hospital Lifestyle No Praveena Pham, NEUROLOGY PROFESSOR Family - family caregiver with be involved in care transitions and discharge planning Lifestyle No Mercy Nam, RN Medical Devices Implanted Type Area Pe Teacher Device Identifier Shelf Expiration Date Model / Serial / Lot Shell Acetabular Depuy 54mm - [id number] Implanted:Qty : 1 on 12/28/2023 by Keyshawn Johnston MD at [facility] [employer] Right: Hip DEPUY [id number] 09/22/2033 [id number] / / [id number] Liner Depuy Acetabular Altrx Neut 36x54 - [id number] Implanted:Qty : 1 on 12/28/2023 by Keyshawn Johnston MD at [facility] [employer] Right: Hip DEPUY [id number] 10/20/2028 [id number] / / [id number] Femoral Stem Implanted:Qty : 1 on 12/28/2023 by Keyshawn Johnston MD at [facility] [employer] Right: Hip DEPUY [id number] 02/19/2031 [id number] / / [id number] Head Depuy Femoral Delta 36mm +1.5 - [id number] Implanted:Qty : 1 on 12/28/2023 by Keyshawn Johnston MD at [facility] [employer] Right: Hip DEPUY [id number] 10/20/2028 [id number] / / [id number] Procedures Procedure Name Priority Date/Time Associated Diagnosis Comments LIPID PANEL Routine 05/26/2023 4:31 AM CDT HEMOGLOBIN, GLYCOSYLATED Routine 05/26/2023 4:31 AM CDT from Last 3 Months or Most Recently Relevant to Health Maintenance Results * (ABNORMAL) HEMOGLOBIN, GLYCATED (05/26/2023 4:31 AM CDT) HGB A1C 6.2(H) <5.7 % 05/26/2023 7:56 PM CDT [facility] Comment: ADA GUIDELINES 2010 5.7 TO 6.4% INCREASED RISK OF DIABETES > OR = 6.5% CONSISTENT WITH DIABETES ESTIMATED AVG GLUCOSE 131 mg/dL 05/26/2023 7:56 PM CDT [facility] 05/26/2023 4:31 AM CDT Karla Mullen DO LABORATORY Final Res ult Performing Organization Address City/[facility]/ZIP Co de Phone Number [facility] [address] [place] [address], * LIPID PANEL (05/26/2023 4:31 AM CDT) CHOLESTEROL 138 <200 MG/DL 05/26/2023 1:11 PM CDT [facility] TRIGLYCERIDES 95 <150 MG/DL 05/26/2023 1:11 PM CDT [facility] HDL 54 >40.0 MG/DL 05/26/2023 1:11 PM CDT [facility] LDL (CALCULATED) 65 <100 MG/DL 05/26/20 1:11 PM CDT [facility] NON HDL CHOLESTEROL 84 <130 MG/DL 05/26 1:11 PM CDT [facility] CHOL/HDL RATIO 2.6 0.0 - 4.5 05/26/2023 1:11 PM CDT [facility] VLDL CALCULATION 19 5 - 55 MG/DL 05/26/2023 1:11 PM CDT [facility] LIPID INTERPRETATION 05/26/2023 1:11 PM CDT [facility] Comment: NIH CONCENSUS REPORT RECOMMENDATIONS: ADULT CHILD LOW RISK: CHOLESTEROL <200 <170 TRIGLYCERIDE <150 --- HDL >=60 --- LDL <100 <110 BORDERLINE: CHOLESTEROL 200-239 170-199 TRIGLYCERIDE 150-199 --- HDL 40-59 --- LDL 100-159 110-129 HIGH RISK: CHOLESTEROL >=240 >=200 TRIGLYCERIDE >=200 --- HDL <40 --- LDL >=160 >=130 05/26/2023 4:31 AM CDT Karla Mullen DO LABORATORY Final Res ult Performing Organization Address City/[facility]/ZIP Co de Phone Number [facility] [address] [place] [address], from Last 3 Months or Most Recently Relevant to Health Maintenance Insurance AENA MEDICARE Advance Directives Documents on File Type Date Recorded 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 Car 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 Advance Directives and Livin g Will 01/01/2024 11:09 AM * Full Code (Latest Code Status on File) Date Activated Date Inactivated Comments 01/25/2024 8:04 AM 08/07/2024 1:15 PM * Full Code Date Activated Date Inactivated Comments 12/28/2023 3:37 PM 12/30/2023 1:32 PM * Full Code Date Activated Date Inactivated Comments 05/26/2023 5:21 AM 05/26/2023 5:08 PM * Full Code Date Activated Date Inactivated Comments 03/08/2023 6:41 AM 05/26/2023 4:19 AM * Full Code Date Activated Date Inactivated Comments 02/28/2023 6:57 PM 03/03/2023 2:28 PM Care Teams Staff Weapons Officer Relationship Specialty Start Date End Date Farhat Conde MD [address] [place] [id number] PCP - General FAMILY PRACTICE 02/28/[address] [facility], [address] [place] [address] Consulting Physician CARDIOVASCULAR DISEASE 11/17/23
--- OUTSIDE RECORDS SUMMARY | 2025-07-24 14:13 | XMS_ITS | Clinical Summary ---
Author Organization [facility] Address [address] [place] [id number] Phone Care Team Providers Care Ux Consultant Name Role Phone Farhat Blas MD Primary Care Provider [phone] Allergies Active Allergy Reactions Criticality Noted Date [...] TOUCH PEN NEEDLES 31[facility] X [address] [facility] 11/22/2019 Active Lancets (ONETOUCH DELICA PLUS [id number]) [facility] 11/22/2019 Act sabrina donepezil (ARICEPT) 10 MG [...] Comments Blood Pressure 112/60 07/29/2022 10:05 AM SPORTS AGENT Pulse 72 07/29/2022 10:05 AM SPORTS AGENT Temperature 34.7 C (94.4 F) 07/29/2022 10:05 AM SPORTS AGENT Respiratory Rate 18 11/02/2012 12:01 AM CDT Oxygen Saturation - - Inhaled Oxygen Concentration - - Weight 86.6 kg (191 lb) 07/29/2022 10:05 AM SPORTS AGENT Height 172.7 cm (5' 8) 07/29/2022 10:05 AM SPORTS AGENT Body Mass Index 29.04 07/29/2022 10:05 AM SPORTS AGENT Plan of Treatment Health Maintenance Due Date Last Done Comments Pneumococcal PPSV23/PCV13 65 + Years / Low and Medium Risk (1 of 2 - PCV) 1994 Influenza Vaccine (#1) 2025 2, 05/23/2021, 04/23/2020 Insurance [employer]ARE Care Teams Ux Consultant Relationship Specialty Start Date End Date Farhat Blas MD [address] [address] PCP - General Family Medicine 02/08/19
--- OUTSIDE RECORDS SUMMARY | 2025-07-24 14:13 | XMS_ITS | Encounter Summary ---
Author Organization [facility] Address [address] [place] [address] Care Team Providers Care Cooler Worker Name Role Phone Unavailable Primary Care Provider Unavailabl e Encounter Details Date Type Department Care Team (Late st Contact Info) Description 02/22/2023 Documentation [facility] [address] [place] [address] Edgar Balderrama MD [address] [place] [address] Social History Tobacco Use Types [...] Fluoroscop y Narrative 02/24/2023 7:02 AM CDT [facility] [address]. 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 C-ARM FLUOROSCOPY 1-HOUR [id number] COMPLETE:02/22/23 18:07 [id number] (C-ARM REASON: rt stent place NO READING PER DR BALDERRAMA Copy for: CONCHIS MANDUJANO via fax DISCHARGED Procedure Note [facility] [place] Radi[place] - 04/27/2023 [facility] [address] [place]. 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 C-ARM FLUOROSCOPY 1-HOUR [id number] COMPLETE:02/22/23 18:07 [id number] (C-ARM REASON: rt stent place NO READING PER DR BALDERRAMA Copy for: CONCHIS MANDUJANO via fax DISCHARGED Edgar Balderrama MD IM FLUOROSCOPY PROCEDURES Final Result documented in this encounter Visit Diagnoses Not on filedocumented in this encounter
--- OUTSIDE RECORDS SUMMARY | 2025-07-24 14:13 | XMS_ITS | Clinical Summary ---
Author Organization [facility] Address [facility] [place] [address] Care Team Providers Care Apple Turner Name Role Phone Unavailable Primary Care Provider [...] Orientation Not on file Plan of Treatment Not on file
--- OUTSIDE RECORDS SUMMARY | 2025-07-24 14:14 | XMS_ITS ---
Author Organization Unknown Address [address] [place], [place] [id number] Phone Care Team Providers Care Supervisor Of Guidance And Testing Name Role Phone MOLLY HYLTON MIGUEL Attending Unavailable Immunization Immunization Date Status Additional Notes Code Code System COVID-19, mRNA, LNP-S, PF, 5 0 mcg/0.5 mL 06/21/2023 Completed 312 CVX Pneumococcal conjugate PCV20 , polysaccharide [id number] conjugate, adjuvant, PF 02/26/2023 Completed 216 CVX [...] Code Code Sys tem Muscle weakness 07/07/2023 [id number] SNOMED-CT Personal Care Team Section Progress Notes [facility] PT Initial Evaluation Scanned image
[2025-07-24 14:24] LABS: Add Urine Microscopic? YES; Appearance Urine Clear (Clear); Glucose Urine UA 3+ mg/dL (Negative); Leukocyte Esterase Ur Negative LEU/UL (Negative); Need Manual Microscopic Reviewed; Nitrate Urine Negative (Negative); Specific Grav Ur 1.023 (1.001-1.035)
== END 2025-07-24 13:16 | disposition home or self-care (01) ==
LOC: ANHLAB 13:16
PROVIDERS: PCP Family Medicine Adolescent Medicine; Visit Provider Internal Medicine Nephrology
DX: N20.0 Calculus of kidney (principal); N18.32 Chronic kidney disease, stage 3b
CPT/HCPCS: 36415; 80069; 81001; 82570; 83970; 84156; 84550; 85027